=== PATIENT | male | born 1995 | race Two or more races ===

== ENCOUNTER 2018-03-16 22:46 | Emergency (ER) | payer OTHER ==
[~2018-03-16] VITALS: Ht 175.3 cm; Wt 62.6 kg
--- NOTE | 2018-03-16 22:50 | NUR ---
Patient stating "I feel alot better now." Patient with no distress noted
--- NOTE | 2018-03-16 23:10 | NUR ---
Dr Alfaro into eval patient
--- NOTE | 2018-03-16 23:17 | NUR ---
Patient discharged to home in stable conditon. Written and verbal after care instructions given. Patient verbalizes understanding of instructions. Walked out of ER with friend taking patient home. No distress noted
[2018-03-16 23:18] VITALS: BP 128/66
== END 2018-03-16 23:20 | disposition home or self-care (01) ==
LOC: ER 22:50
DX: F41.9 Anxiety disorder, unspecified (principal); T40.7X5A Adverse effect of cannabis (derivatives), initial encounter; Y92.89 Other specified places as the place of occurrence of the external cause; J45.909 Unspecified asthma, uncomplicated; F12.10 Cannabis abuse, uncomplicated
CPT/HCPCS: A4663